=== PATIENT | female | born 1960 | race Caucasian/White ===

== ENCOUNTER → 2016-03-14 | Outpatient (CLI) | payer BC ==
--- NOTE | 2016-03-14 16:52 | KCIC ---
PROCEDURE Lumbar spine MRI without contrast. HISTORY Lower back pain and left lower extremity weakness and numbness. TECHNIQUE Multiplanar and multi sequence magnetic resonance imaging of the lumbar spine was performed without contrast. COMPARISON None. FINDINGS There is a suspected transitional lumbosacral segment. This will be considered L5 for this dictation. Based on this numbering system, there is minimal grade 1 anterolisthesis of L4 on L5, measuring 1-2 mm. There is minimal retrolisthesis L2 on L3 and L3 on L4. The conus terminates at T12-L1. 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 No suspicious osseous lesion is seen. There is edema involving the right greater than left L4-L5 facet joints and surrounding soft tissues. At L1-L2, there is no stenosis. At L2-L3, there is a minimal disc bulge. There is mild right facet arthropathy. There is no stenosis. At L3-L4, there is a minimal disc bulge and anterior annular tear. There is no stenosis. At L4-L5, there is a minimal disc bulge and left extra foraminal annular tear. There is mild bilateral facet arthropathy. There is no stenosis. At L5-S1, there is a rudimentary disc at this level. There is minimal bilateral facet arthropathy. There is no stenosis. IMPRESSION 1. Minimal to mild degenerative change within the lumbar spine, without significant foraminal or central canal stenosis. 2. Mild edema involving the L4-L5 facet joints and adjacent soft tissues, likely inflammatory in etiology. 3. Suspected transitional lumbosacral segment, considered L5 with a rudimentary L5-S1 disc for this dictation. Electronically signed by: Shamika Seymour (Mar 14, 2016 16:51:58)
--- NOTE | 2016-03-14 16:55 | KCIC ---
PROCEDURE MR of the left hip HISTORY Left leg weakness. Low back pain. Left hip pain. Symptoms for 4-5 months. COMPARISON None TECHNIQUE Standard noncontrast images are obtained. FINDINGS No bone lesion or acute fracture. No acute bone marrow edema. No femoral head osteonecrosis. No significant joint effusion. No evidence of labral tear or paralabral cyst. No advanced osteoarthritis. Gluteus minimus tendon demonstrates tendinosis and mild partial tearing at its insertion to the greater tuberosity. Gluteus medius tendon is intact. Mild hamstring tendinosis without acute tear. Iliopsoas tendon is intact. No acute muscle pathology. No abnormal soft tissue fluid collection. Diagnostically limited large [id number] coronal sequence demonstrates no acute findings at the contralateral hip or elsewhere. IMPRESSION Moderate gluteus minimus tendinosis with mild partial tearing at its insertion. No high-grade tear or rupture. Electronically signed by: Vitaly Mcqueen MD (Mar 14, 2016 16:54:30)
== END | disposition home or self-care (01) ==
LOC: KCIC MRI 15:09
PROVIDERS: ATTEND Family Medicine
DX: M47.896 Other spondylosis, lumbar region (principal); R60.1 Generalized edema; M12.88 Other specific arthropathies, not elsewhere classified, other specified site; M51.36 Other intervertebral disc degeneration, lumbar region; R53.1 Weakness
CPT/HCPCS: 72148; 73721

== ENCOUNTER → 2020-04-20 | Outpatient (CLI) | payer OTHER ==
--- NOTE | 2020-04-20 13:41 | KCIC ---
EXAM: CT coronary artery calcium screening; radiologist over read. HISTORY: Cardiovascular screening. Hyperlipidemia. Family history of heart disease. TECHNIQUE: Computed tomographic images of the chest were obtained without contrast. Multiplanar refor matting was performed. *One or more of the following individualized dose reduction techniques were utilized for this examina tion: 1. Automated exposure control. 2. Adjustment of the mA and/or kV according to patient size. 3. Use of iterative reconstruction technique. COMPARISON: None. FINDINGS: The heart is normal in size. The aorta is normal in caliber. There is calcified atheroscler otic plaque involving the coronary arteries. There are benign calcified granulomas within the right h ilum and right lower lobe. There is no acute finding involving the osseous structures or visualized u pper abdomen. Coronary artery calcium score: Left main artery - 0 Left anterior descending - 118.6 Left circumflex - 0 Right coronary artery - 2.6 Posterior descending artery - 0 TOTAL = 121.2 IMPRESSION: 1. Coronary artery calcium score of 121.2. 2. No significant incidental thoracic finding. Electronically signed by: Shamika Seymour MD (04/20/2020 1:38 PM) [id number]
== END ==
LOC: KCIC CT 10:54
PROVIDERS: ATTEND Family Medicine
DX: E78.5 Hyperlipidemia, unspecified (principal); Z13.5 Encounter for screening for eye and ear disorders; Z82.49 Family history of ischemic heart disease and other diseases of the circulatory system
CPT/HCPCS: 75571